=== PATIENT | male | born 1945 | race Caucasian/White ===

== ENCOUNTER 2019-12-20 09:19 | Outpatient (CLI) | payer MEDICARE, SELFPAY | END 2019-12-20 09:20 | disposition home or self-care (01) | LOC: RADWPI 12-21 08:09 | PROVIDERS: PCP Family Medicine; Referring Provider Family Medicine; Visit Provider Specialist | DX: R20.0 Anesthesia of skin; G56.13 Other lesions of median nerve, bilateral upper limbs; G56.22 Lesion of ulnar nerve, left upper limb; G56.00 Carpal tunnel syndrome, unspecified upper limb; Z86.73 Personal history of transient ischemic attack (TIA), and cerebral infarction without residual deficits; R93.5 Abnormal findings on diagnostic imaging of other abdominal regions, including retroperitoneum | CPT/HCPCS: 95910; 99204 ==

== ENCOUNTER → 2019-12-28 09:20 | Outpatient (BNVA) | payer MEDICARE, SELFPAY | PROVIDERS: PCP Family Medicine; Visit Provider Otolaryngology | DX: R13.10 Dysphagia, unspecified (principal); J34.2 Deviated nasal septum; G45.9 Transient cerebral ischemic attack, unspecified | CPT/HCPCS: 99204; 99214 ==

== ENCOUNTER 2019-12-28 11:09 | Outpatient (CLI) | payer MEDICARE, SELFPAY ==
--- NOTE | 2019-12-28 11:19 | MR_ITS ---
WS: [id number] MRI BRAIN WITHOUT CONTRAST HISTORY: TIA COMPARISON: CT head 10/11/2019 TECHNIQUE: Diffusion imaging, multiplanar T1, T2 and FLAIR imaging obtained. No evidence for acute infarct or hemorrhage. Suazo-white matter differentiation is normal. Mild bilateral cerebral atrophy is symmetric with mild small vessel ischemic changes in the periventr icular white matter. There is additional chronic ischemic disease in the krystle. There are several smal l perivascular spaces in the RIGHT krystle. No midline shift or mass effect. Ventricles and extra-axial spaces are normal. No inferior displacement of cerebellar tonsils. The sella turcica and pituitary gland are unremarkabl e. Degenerative disc disease at C3-4 with small osteophytes encroaching upon the ventral cervical cord. Dural venous sinuses and [place] demonstrate no abnormality on this unenhanced studies. Paranasal sinuses: Very mild mucoperiosteal thickening in the ethmoid and sphenoid sinuses. Mucous re tention cyst in the floor the RIGHT maxillary sinus. Mastoid air cells: Normal. Calvarium and scalp: Intact. There is a small cyst in the inferior lobe of the LEFT parotid gland. Th ere may be due to lobulated cyst or lymph node seen best on the coronal T2 sequences. Each measuring about 6 mm. MR/MR head wo con* [id number] IMPRESSION: 1. No evidence for an acute infarct. 2. Mild chronic microvascular ischemic disease. 3. Mild cerebral atrophy.
--- NOTE | 2019-12-28 11:20 | MR_ITS ---
WS: [id number] MRA ANGIOGRAPHY [place] OF [place] HISTORY: TIA COMPARISON: None available. TECHNIQUE: 3-D MR angiography is performed of the [place]. All images are reviewed including source images. Some very small caliber but patent distal RIGHT vertebral artery. Dominant LEFT vertebral artery. Bas ilar artery is normal caliber. Very mild narrowing of the supraclinoid portion of the LEFT ICA but no stenosis or occlusion. There i s mild atherosclerosis of the M1 segments bilaterally. Absent or hypoplastic LEFT A1 segment. No aneu rysms. Bilateral posterior communicating arteries are small caliber. LEFT is very hypoplastic. MR/MR angio head wo con [id number] IMPRESSION: 1. Absent or hypoplastic LEFT A1 segment. 2. Mild atherosclerosis supraclinoid internal carotid arteries and bilateral M 1 segments. No occlusions. 3. No aneurysm. 4. Dominant LEFT vertebral artery.
== END 2019-12-28 11:10 | disposition home or self-care (01) ==
PROVIDERS: PCP Family Medicine; Visit Provider Specialist
DX: I65.23 Occlusion and stenosis of bilateral carotid arteries (principal); G31.9 Degenerative disease of nervous system, unspecified; I67.82 Cerebral ischemia
CPT/HCPCS: 70544; 70551

== ENCOUNTER 2020-01-07 10:01 | Outpatient (CLI) | payer MEDICARE, SELFPAY ==
--- NOTE | 2020-01-07 10:10 | FL_ITS ---
WS: [id number] MODIFIED BARIUM SWALLOW TECHNIQUE: Modified barium swallow with speech therapy using multiple consistencies. FLUOROSCOPY TIME: 2.2 minutes. CLINICAL INFORMATION: Other dysphagia COMPARISON: None. FINDINGS: Multiple consistencies utilized. No difficulties with the barium tablet. Normal oropharyngeal phase. Tiny amount of penetration with trace aspiration with thin liquid at the end of the examination when taken in combination with the jason cracker. Remainder of the consistencies demonstrate no evidence of aspiration penetration. Some early spillage with pooling in the vallecula. FL/FL barium swallow modifd [id number] IMPRESSION: 1. Early spillage with pooling the vallecula. 2. Normal oropharyngeal phase. 3. Tiny amount of penetration and aspiration with thin liquids at the end of t he examination. Otherwise no evidence of aspiration penetration. 4. No difficulties with barium tablet.
== END 2020-01-07 10:02 | disposition home or self-care (01) ==
LOC: RAD 10:05
PROVIDERS: Family Provider Family Medicine; PCP Family Medicine; Visit Provider Otolaryngology
DX: R13.10 Dysphagia, unspecified (principal)
CPT/HCPCS: 74230; 92611

== ENCOUNTER → 2020-01-18 11:07 | Outpatient (BNVA) | payer MEDICARE, SELFPAY | PROVIDERS: Family Provider Family Medicine; PCP Family Medicine; Visit Provider Otolaryngology | DX: R13.10 Dysphagia, unspecified (principal); G45.9 Transient cerebral ischemic attack, unspecified; J34.2 Deviated nasal septum | CPT/HCPCS: 99213 ==

== ENCOUNTER 2020-02-23 05:53 | Day surgery (SDC) | payer MEDICARE, SELFPAY ==
[2020-02-22 10:28] VITALS: BMI 25.6
[2020-02-23] VITALS (7 sets, daily range): BP systolic 92–175; BP diastolic 60–93; PULSE 56–80; RESP 16–20; TEMP 36.1–37.1; O2SAT 93–97
--- NOTE | 2020-02-23 06:14 | ECG_ITS ---
Measurements Intervals [place] Rate: 51 P: 53 VT: 173 QRS: -12 QRSD: 89 T: 14 QT: 419 QTc: 387 SINUS BRADYCARDIA Compared to ECG 10/11/2019 04:22:06 Sinus rhythm no longer present Ventricular premature complex(es) no longer present T-wave abnormality no longer present Electronically Signed On 02-23-2020 19:45:09 CDT by Philly Gomes M.D. [id number]
[2020-02-23] MEDS: sodium chloride 0.9% 1,000 ML 30 ML IV (06:30)
--- NOTE | 2020-02-23 06:38 | P.ANESASSM_ITS ---
Pre-Anesthetic Assessment Pre-Anesthetic Assessment: Height/Weight: Height 1.92 m Weight 94.347 kg Temp Pulse Resp BP Pulse Ox 98.8 F 56 L 18 175/93 95 02/23/20 06:16 02/23/20 06:16 02/23/20 06:16 02/23/20 06:16 02/23/20 06:16 Preop Diagnosis: Right carpal tunnel syndrome, cubital tunnel syndrome Proposed Procedure: Operation Date: 02/23/20 07:05 Proposed Procedures p Carpal Tunnel Release [id number] G56.01 G56.21(Right) - Fabrice Simons MD s Ulna Nerve Decompression(Right) - Fabrice Simons MD Familial anesthetic complications: None Was Beta Melecio taken within 24 hours: N/A Last intake: Intake Last Liquid Date 02/22/20 Last Liquid Time 23:40 Last Solid Date 02/22/20 Last Solid Time 19:00 Social: Social History: No alcohol and No tobacco Exam: Pre-Anes Outpt Exam: alert, oriented x 3, clear to auscultation bilaterally and regular rate & rhythm Additional Exam Findings (including area of procedure): bradycardia Airway: Cervical ROM: WNL MP: 4 Additional comments: missing Pulmonary: Pulmonary: Sleep apnea (CPAP) CV/HEM: CV/HEM: Afib and HTN Comments: ? hx of atrial fibrillation - quit eliquis last month : : None reported Hepatic: Hepatic: None reported GI: GI: None reported Metabolic: Metabolic: None reported Musc/skel: Musc/skel: None reported Neuropsych: Neuropsych: CVA (L weakness, back to normal now ( september)) Anesthetic Plan: ASA status: 2 Anesthesia: General Risk of > 500 ml blood loss (7ml/kg in children): No Meds/Allergies Current Medications: Current Medications Generic Name Dose Route Start Last Admin Trade Name Freq PRN Reason Stop Dose Admin Sodium Chloride 1,000 mls @ 30 ml s/hr 02/23/20 06:00 02/23/20 06:30 Sodium Chloride 0.9% IV 02/24/20 05:59 30 mls/hr .Q24H JO-ANN Administration PFSH Anesthesia PFSH: Social History Smoking and tobacco status: former smoker Quit status (tobacco): has quit using tobacco Year quit tobacco: 1994 Alcohol intake: current Alcohol intake frequency: 0-2 Drinks per Day Alcohol type: beer History of recent travel: Yes (10/30/2019) Details: cruise to [place] Data Anesthesia Cardiac Studies: No Data to Display
--- NOTE | 2020-02-23 07:15 | W.PM.OPSFHP ---
Same Day Surgery H&P Indication for Procedure/HPI DATE OF PROCEDURE: February 23, 2020 CHIEF COMPLAINT/INDICATIONFOR SURGICAL PROCEDURE: Numbness pain right arm PREOP DIAGNOSIS: Right carpal tunnel syndrome, cubital tunnel syndrome PLANNED PROCEDRUE: Operation Date: 02/23/20 07:05 Proposed Procedures p Carpal Tunnel Release [id number] G56.01 G56.21(Right) - Fabrice Simons MD s Ulna Nerve Decompression(Right) - Fabrice Simons MD 75-year-old male with a chronic numbness and pain right arm. EMG nerve conduction study showed right carpal tunnel syndrome and right ulnar nerve compression at elbow Medications/Allergies* Home Medications Medication Instructions Recorded Confirmed Type atorvastatin 10 mg tablet 10 mg PO DAILY 12/20/19 02/23/20 History citalopram 10 mg tablet 10 mg PO DAILY 12/20/19 02/23/20 History lisinopril 10 1 tab PO DAILY 12/20/19 02/23/20 History mg-hydrochlorothiazide 12.5 mg tablet aspirin 81 mg PO DAILY 02/22/20 02/22/20 History Allergies/Adverse Reactions Allergy/AdvReac Type Severity Reaction Status Date / Time No Known Allergies Allergy Verified 01/14/20 09:35 Current Medications: Generic Name Dose Route Start Last Admin Trade Name Freq PRN Reason Stop Dose Admin Sodium Chloride 1,000 mls @ 30 mls/hr 02/23/20 06:00 02/23/20 06:30 Sodium Chloride 0.9% IV 02/24/20 05:59 30 mls/hr .Q24H JO-ANN Administration Pertinent History/Comorbid Conditions* Medical History (Updated 01/04/20 @ 10:24 by Fabrice Simons MD) Deviated septum Dysphagia Family History (Updated 12/20/19 @ 10:11 by Jackie Corrales LPN) Diabetes Hypertension Stroke Denies family history of CAD (coronary artery disease) Cancer Social History Smoking and tobacco status: former smoker Quit status (tobacco): has quit using tobacco Year quit tobacco: 1994 Alcohol intake: current Alcohol intake frequency: 0-2 Drinks per Day Alcohol type: beer History of recent travel: Yes (10/30/2019) Details: cruise to [place] Pertinent Exam Findings alert, oriented x 3, clear to auscultation bilaterally and regular rate & rhythm Full range of motion right elbow. 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
--- NOTE | 2020-02-23 09:02 | P.OP_ITS ---
Operative Report Date of procedure: February 23, 2020 Pre-op Diagnosis: Right carpal tunnel syndrome, cubital tunnel syndrome Post-op diagnosis: same Post-op Findings: Same Procedure Done: Right carpal tunnel release, right ulnar nerve decompression Pathology: none sent Surgeon: Fabrice Simons Anesthesia: General Estimated blood loss (mL): 25 Tourniquet time (min): 17 Complications: None Findings: There was dense scaring behind the medial epicondyle. No masses or space-occupying lesions were seen in the cubital tunnel or carpal tunnel Condition: stable Disposition: PACU Procedure: The patient was taken to the operating room and given a general anesthesia. A tourniquet was inflated to 225 mmHg. A timeout was performed. A 5 cm long incision was made behind the medial epicondyle. Dissection was accomplished bluntly under loupe magnification identifying the ulnar nerve prox imally. Utilizing a hemostat the fascia over the nerve was elevated and incised proximally. Dissection was then carried distally behind the medial epicondyle and into the flexor carpi ulnaris musculature. Dissection was stopped with the first muscular branches identified. Elbow was brought through range of motion with the nerve seen to stay reduced behind the medial epicondyle. No formal transpoition was thought to be warranted. A 3 cm long incision was made in line with the fourth ray from the distal edge of the carpal tunnel extending proximally. The subcutaneous fat and palmar fascia was divided with a scalpel blade. Under loupe magnification the ulnar neurovascular bundle was identified distally. A hemostat could be passed under the transverse carpal ligament allowing the distal 25% to be divided. A slotted guide was then passed beneath the transverse carpal ligament and the middle 50% divided. Blunt scissors were then passed over the guide freeing the proximal ligament. The tourniquet was deflated. Wounds were irrigated with saline. Initial attention was paid to the medial elbow wound. Wound edges were infiltrated with 10 cc of a half percent Marcaine solution Deep tissues were closed with 2-0 Vicryl. Subcutaneous is closed with 3-0 Vicryl. The skin was closed with a running 3-0 Prolene. Steri-Strips were applied. Xeroform gauze, 4 x 4's, compressive labral, and Angelito wrap, and a sling were applied. The patient was taken recovery room in stable condition. Next attention was paid to the carpal tunnel incision hemostasis provided with electrocautery. Wound edges were infiltrated with 10 cc of a half percent Marcaine solution. Skin edges were reapproximated with 3-0 Prolene. Sterile dressings were applied. The patient was taken to the recovery room in stable condition
== END 2020-02-23 09:35 | disposition home or self-care (01) ==
PROVIDERS: Family Provider Family Medicine; PCP Family Medicine; Visit Provider Orthopaedic Surgery
PROC: (CPT 64721; principal; 2020-02-23 07:00)
PROC: (CPT 64718; 2020-02-23 07:00)
DX: G56.01 Carpal tunnel syndrome, right upper limb (principal); G56.21 Lesion of ulnar nerve, right upper limb; Z79.82 Long term (current) use of aspirin; Z82.49 Family history of ischemic heart disease and other diseases of the circulatory system; Z83.3 Family history of diabetes mellitus; Z87.891 Personal history of nicotine dependence; G47.30 Sleep apnea, unspecified; I48.91 Unspecified atrial fibrillation; I10 Essential (primary) hypertension; I69.854 Hemiplegia and hemiparesis following other cerebrovascular disease affecting left non-dominant side
CPT/HCPCS: 64718; 64721; 12345; 93005; J0690; J2001; J2370; J2704; J3010; J3490; J7030

== ENCOUNTER → 2020-03-21 10:38 | Outpatient (BNVA) | payer MEDICARE, SELFPAY | PROVIDERS: Family Provider Family Medicine; PCP Family Medicine; Visit Provider Specialist | DX: I99.8 Other disorder of circulatory system (principal); R26.9 Unspecified abnormalities of gait and mobility; Z87.891 Personal history of nicotine dependence; Z86.73 Personal history of transient ischemic attack (TIA), and cerebral infarction without residual deficits | CPT/HCPCS: 99214 ==

== ENCOUNTER 2020-08-29 15:26 | Outpatient (CLI) | payer MEDICARE, SELFPAY ==
--- NOTE | 2020-08-29 15:44 | MR_ITS ---
WS: [id number] MRI LEFT KNEE NONCONTRAST TECHNIQUE: Axial PD, coronal PD fat sat, coronal PD, sagittal PD, and sagittal PD fat-sat images obta ined. CLINICAL INFORMATION: LEFT KNEE PAIN COMPARISON: None. FINDINGS: Moderate suprapatellar effusion. Mild diffuse subcutaneous edema about the left knee. Hypertrophic pa tella. Distal quadriceps and patella tendons appear intact. Advanced joint space narrowing involving the medial and lateral joint compartment with subchondral edema involving the medial femoral condyle and medial tibial plateau. ACL and PCL are intact. Extensive complex tear involving the posterior horn medial meniscus extending to the meniscal root wi th T2 hyperintensity. Some this may be postoperative from prior meniscectomy. Intrasubstance signal a bnormality involving the posterior horn medial meniscus. Lateral meniscus is better preserved. No acu te appearing lateral meniscal tear. Medial and lateral collateral ligaments appear intact. Hypertrophic patella with advanced chondromala ralph. No subchondral edema. Medial and lateral patellar intact. Soft tissue edema within the popliteal fossa. IMPRESSION: 1. Anterior and posterior cruciate ligaments are intact. 2. Extensive complex tear involving the posterior horn medial meniscus extending to the meniscal woody t with T2 hyperintensity. 3. Chronic appearing medial compartment joint space narrowing with subchondral edema involving the t ibial plateau and femoral condyle. 4. Moderate suprapatellar effusion with diffuse subcutaneous edema about the left knee likely inflam matory. 5. Advanced chondromalacia patella. No subchondral edema. 6. Advanced joint space narrowing involving the medial and lateral joint compartments with chondroma lacia.
== END 2020-08-29 15:27 | disposition home or self-care (01) ==
PROVIDERS: PCP Family Medicine; Visit Provider Family Medicine
DX: S83.242A Other tear of medial meniscus, current injury, left knee, initial encounter (principal); R60.0 Localized edema; M22.42 Chondromalacia patellae, left knee; X58.XXXA Exposure to other specified factors, initial encounter
CPT/HCPCS: 73721

== ENCOUNTER 2020-09-19 12:12 | Outpatient (CLI) | payer MEDICARE, SELFPAY ==
[2020-09-19 12:48] LABS: Basophils # 0.1 10^3/uL (0.0-0.1); Basophils % 0.8 %; Eosinophils # 0.1 10^3/uL (0.0-0.8); Hematocrit 43.5 % (42.0-52.0); Hemoglobin 14.6 g/dL (11.7-16.6); Lymphocytes # 1.4 10^3/uL (0.8-4.8); Lymphocytes % 23.2 %; Mean Corpuscular HGB Conc 33.6 g/dL (30.0-36.0); Mean Corpuscular Hemoglobin 30.7 pg (28.0-34.0); Mean Corpuscular Volume 91.4 fL (80-94); Monocytes # 0.8 10^3/uL (0.2-0.9); Neutrophils % 61.7 %; Nucleated Red Blood Cells % 0 %; Platelet Count 225 10^3/cmm (130-400); Red Blood Count 4.76 10^6/uL (4.1-5.3); Red Cell Distribution Width 12.6 % (12.1-15.1); White Blood Count 6.2 10^3/uL (4.0-10.0)
--- NOTE | 2020-09-19 13:23 | ECG_ITS ---
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1945 Requested By: Jayme Norman Order Number: [id number] Reading MD: DIGNA BILLY Measurements Intervals [place] Rate: 61 P: 70 MT: 163 QRS: 26 QRSD: 103 T: 78 QT: 393 QTc: 399 Interpretive Statements SINUS RHYTHM NONSPECIFIC ST & T-WAVE ABNORMALITY INTERPRETATION BASED ON A DEFAULT AGE OF 40 YEARS Compared to ECG 02/23/2020 06:21:49 T-wave abnormality now present Sinus bradycardia no longer present Electronically Signed On 09-21-2020 15:34:17 WAREHOUSE PULLER by DIGNA BILLY [id number]
[2020-09-19 13:32] LABS: Anion Gap 12.2 (5-19); Blood Urea Nitrogen 15 mg/dL (8-23); Calcium 9.2 mg/dL (8.5-10.5); Carbon Dioxide 29 mmol/L (22-29); Chloride 97 mmol/L (98-107); Glucose 221 mg/dL (65-115); Osmolality Calculated 286 mOsm/kg (285-295); Potassium 4.2 mmol/L (3.5-5.1); Sodium 134 mmol/L (136-145)
== END 2020-09-19 12:13 | disposition home or self-care (01) ==
PROVIDERS: PCP Family Medicine; Visit Provider Orthopaedic Surgery
DX: Z01.818 Encounter for other preprocedural examination (principal)
CPT/HCPCS: 36415; 80048; 85025; 93005

== ENCOUNTER → 2023-05-08 09:59 | Outpatient (BNVA) | payer MEDICARE, SELFPAY | PROVIDERS: PCP Nurse Practitioner Family; Visit Provider Nurse Practitioner Family | DX: L57.8 Other skin changes due to chronic exposure to nonionizing radiation (principal); L57.0 Actinic keratosis; L82.1 Other seborrheic keratosis; L85.3 Xerosis cutis; L81.4 Other melanin hyperpigmentation; D22.5 Melanocytic nevi of trunk; Z71.89 Other specified counseling | CPT/HCPCS: 17000; 17003; 99203 ==

== ENCOUNTER → 2023-08-12 11:09 | Outpatient (BNVA) | payer MEDICARE, SELFPAY | PROVIDERS: PCP Nurse Practitioner Family; Visit Provider Nurse Practitioner Family | DX: L57.8 Other skin changes due to chronic exposure to nonionizing radiation (principal); L57.0 Actinic keratosis; L82.1 Other seborrheic keratosis; L81.4 Other melanin hyperpigmentation | CPT/HCPCS: 17000; 99213 ==

== ENCOUNTER → 2024-12-20 10:00 | Outpatient (BNVA) | payer OTHER, SELFPAY | PROVIDERS: PCP Nurse Practitioner Family; Visit Provider Specialist | DX: M17.11 Unilateral primary osteoarthritis, right knee (principal) | CPT/HCPCS: 20610; 73560; 73565; 99204; J7326 ==

== ENCOUNTER 2025-03-08 15:13 | Emergency (ER) | payer OTHER, MEDICARE, SELFPAY ==
[2025-03-08] VITALS (9 sets, daily range): BP systolic 110–212; BP diastolic 71–100; PULSE 48–91; RESP 16–20; TEMP 36.6; O2SAT 94–98; BMI 24.2
--- NOTE | 2025-03-08 15:23 | ECG_ITS ---
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1945 Requested By: Tamica Richards Order Number: [id number] Reading MD: DIGNA BILLY Measurements Intervals [place] Rate: 55 P: 65 MD: 159 QRS: -26 QRSD: 99 T: -11 QT: 425 QTc: 408 Interpretive Statements SINUS BRADYCARDIA INCOMPLETE RIGHT BUNDLE BRANCH BLOCK [90+ ms QRS DURATION, TERMINAL R IN V1/V2, 40+ ms S IN I/aVL/V4/V5/V6] PROBABLE SEPTAL MYOCARDIAL INFARCTION , PROBABLY OLD [35 ms Q WAVE IN V1/V2] Compared to ECG 09/19/2020 13:07:57 Incomplete right bundle-branch block now present Myocardial infarct finding now present Sinus rhythm no longer present T-wave abnormality no longer present Electronically Signed On 03-10-2025 23:33:30 CDT by DIGNA BILLY [email or web address] [id number]
--- NOTE | 2025-03-08 16:19 | ECG_ITS ---
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1945 Requested By: Bertrand Aguilar Order Number: [id number] Reading MD: DIGNA BILLY Measurements Intervals [place] Rate: 55 P: 65 [place]: 159 QRS: -26 QRSD: 99 T: -11 QT: 425 QTc: 408 Interpretive Statements SINUS BRADYCARDIA INCOMPLETE RIGHT BUNDLE BRANCH BLOCK [90+ ms QRS DURATION, TERMINAL R IN V1/V2, 40+ ms S IN I/aVL/V4/V5/V6] PROBABLE SEPTAL MYOCARDIAL INFARCTION , PROBABLY OLD [35 ms Q WAVE IN V1/V2] Compared to ECG 09/19/2020 13:07:57 Incomplete right bundle-branch block now present Myocardial infarct finding now present Sinus rhythm no longer present T-wave abnormality no longer present Electronically Signed On 03-10-2025 23:33:42 CDT by DIGNA BILLY [id number]
--- NOTE | 2025-03-08 16:25 | ED_ITS ---
Documented by User: Bertrand Ornelas DO 03/08/25 16:51 HPI - Arrhythmia/Palpitations 2 General: Chief Complaint: Arrhythmia/Palpitations Stated Complaint: heart rate is up and down Time Seen by Provider: 03/08/25 16:17 History of Present Illness: 80-year-old male presents emergency room complaining of feeling lightheaded and dizzy when he stands up. He was at a local pharmacy in [place] and tested his blood pressure read 77 systolic presented to the emergency room he has had this in the past before. He feels fuzzy when he first stands up and feels like he is going to pass out often. He is on tamsulosin and escitalopram no other blood pressure medications he is bradycardic on arrival but relates that he is chronically at that same rate. He is not had any chest pain or shortness of breath. Related Data Home Medications ?Medication ?Instructions ?Recorded ?Confirmed atorvastatin 10 mg tablet 10 mg PO DAILY 03/08/2502/24 escitalopram oxalate 20 mg tablet 20 mg PO DAILY 03/0803/08/25 tamsulosin 0.4 mg capsule 0.4 mg PO DAILY 03/08/25 Allergies Allergy/AdvReac Type Severity Reaction Status Date / Time No Known Allergies Allergy Verified 12/20/24 10:19 Review of Systems 2 Const: Denies: fever(s) or chills Card: Denies: chest pain Resp: Denies: dyspnea GI: Denies: abdominal pain : Denies: dysuria, urinary frequency or urinary urgency Musc: Denies: neck pain or back pain Skin/Breast: Denies: rash PFSH ED 2 PFSH: Medical History (Updated 03/08/25 @ 20:06 by Chet Corado MD) Deviated septum Dysphagia Family History Other Diabetes Hypertension Stroke Denies family history of CAD (coronary artery disease) Cancer Social History Smoking and tobacco/nicotine status: never used tobacco/nicotine Quit status (tobacco/nicotine): has quit using Year quit tobacco: 1994 Alcohol intake: current Alcohol intake frequency: 0-2 Drinks per Day Alcohol type: beer Substance/Drug Use: never Physical Exam 2 Const: GENERAL APPEARANCE: cooperative ORIENTATION/CONSCIOUSNESS: Yes awake, Yes oriented to person, Yes oriented to place and Yes oriented to time HENMT: COMMON NORMALS: normocephalic, atraumatic and hearing grossly normal bilaterally HEAD & SCALP: normocephalic and atraumatic Resp: COMMON NORMALS: normal respiratory effort, No retractions, No use of accessory muscles and clear to auscultation bilaterally AUSCULTATION: clear to auscultation bilaterally Cardio: COMMON NORMALS: regular rate, regular rhythm and No murmurs present (Cardio) RATE: regular rate RHYTHM: regular rhythm GI: COMMON NORMALS: Soft to palpation and No hepatosplenomegaly present A USCULTATION: Yes normoactive bowel sounds PALPATION: Yes Soft to palpation, No Tenderness to palpation present (GI), No Guarding due to palpation present (GI) and Yes No hepatosplenomegaly present Extremity: COMMON NORMALS: normal to inspection, capillary refill normal, no clubbing, cyanosis or edema, no calf tenderness and no pedal edema Neuro: SENSORIUM/ORIENTATION: Yes oriented to person, Yes oriented to place and Yes oriented to time Skin: COMMON NORMALS: no rashes or lesions noted GENERAL SKIN EXAM: no rashes or lesions noted Course 2 Vital Signs: Vital signs: Vital Signs Temperature 97.8 F 03/08/25 15:16 Pulse Rate 52 L 03/08/25 20:34 Respiratory Rate 20 H 03/08/25 19:45 Blood Pressure 172/90 03/08/25 20:34 Pulse Oximetry 96 03/08/25 20:34 Oxygen Delivery Me thod Ambu-Bag 03/08/25 19:45 MDM - Arrhythmia/Palpitations Lab Data 03/08/25 16:29 03/08/25 16:29 Radiology Impressions Chest X-Ray 03/08/25 17:11 IMPRESSION: No acute findings. Laboratory Results WBC 7.01 10^3/uL (3.29-11.43) 03/08/25 16:29 RBC 5.10 10^6/uL (3.85-5.65) 03/08/25 16:29 Hgb 15.20 g/dL (11.27-16.99) 03/08/25 16:29 Hct 46.4 % (37-53) 03/08/25 16:29 MCV 91.0 fl (82-101) 03/08/25 16: MCH 29.8 pg (27-33) 03/08/25 16: MCHC 32.8 g/dL (30-55) 03/08/25 16: RDW 12.7 % (12.1-15.1) 03/08/25 16: Plt Count 163 10^3/cmm (157-399) 03/08/25 16: MPV 10.5 fL (7.4-10.4) H 03/08/25 16: Neut % (Auto) 55.5 % 03/08/25 16: Lymph % (Auto) 30.1 % 03/08/25 16: Archer % (Auto) 12.1 % 03/08/25 16: Eos % (Auto) 1.6 % 03/08/25 16: Baso % (Auto) 0.6 % 03/08/25 16: Neut # (Auto) 3.89 10^3/uL (1.8-7.7) 03/08/25 16: Lymph # (Auto) 2.1 10^3/uL (0.8-4.8) 03/08/25 16: Archer # (Auto) 0.9 10^3/uL (0.2-0.9) 03/08/25 16: Eos # (Auto) 0.1 10^3/uL (0.0-0.8) 03/08/25 16: Baso # (Auto) 0.0 10^3/uL (0.0-0.1) 03/08/25: Nucleated RBC % (auto) 0 % 03/08/25 16: Nucleated RBCs # 0.0 /100WBC 03/08/25 16: Sodium 137 mmol/L (136-145) 03/08/25 16: Potassium 4.2 mmol/L (3.5-5.1) 03/08/25 16: Chloride 100 mmol/L (98-107) 03/08/25 16: Carbon Dioxide 24 mmol/L (22-29) 03/08/25 16: Anion Gap 17.2 (5-19) 03/08/25 16: BUN 21 mg/dL (8-23) 03/08/25 16: Creatinine 1.3 mg/dL (0.7-1.2) H 03/08/25 16:29 GFR Calculation Not Reportable 03/08/25 16: Glucose 121 mg/dL (65-115) H 03/08/25 16:29 Calculated Osmolality 288 mOsm/kg (285-295) 03/08/25 16: Calcium 8.8 mg/dL (8.5-10.5) 03/08/25 16: Total Bilirubin 0.4 mg/dL (0.15-1.2) 03/08/25 16: AST 23 U/L (0-40) 03/08/25 16: ALT 19 U/L (0-41) 03/08/25 16: Alkaline Phosphatase 96 U/L (40-130) 03/08/25 16:29 Troponin T Baseline 16 ng/L (0-15) H 03/08/25 16: Troponin T 120 Minute 16.11 ng/L (0-15) H 03/08/25 18:18 Delta Troponin T 0.11 ABS# (0-10) 03/08/25 18:18 Total Protein 6.5 g/dL (6.6-8.7) L 03/08/25 16: Albumin 4.1 g/dL (3.5-5.2) 03/08/25 16: Globulin 2.4 g/dL (1.3-4.6) 03/08/25 16:29 Urine Color Yellow (Yellow) 03/08/25 18:10 Urine Appearance Clear (CLEAR) 03/08/25 18:10 Urine pH 5.5 (5-7) 03/08/25 18:10 Ur Specific [place] 1.015 (1.005-1.030) 03/08/25 18:10 Urine Protein Negative (Negative) 03/08/25 18:10 Urine Glucose (UA) 3+ (Normal) H 03/08/25 18:10 Urine Ketones Negative (Negative) 03/08/25 18:10 Urine Blood Negative (Negative) 03/08/25 18:10 Urine Nitrate Negative (Negative) 03/08/25 18:10 Urine Bilirubin Negative (Negative) 03/08/25 18:10 Urine Urobilinogen 1.0 mg/dL (Negative) 03/08/25 18:10 Ur Leukocyte Esterase Negative (Negative) 03/08/25 18:10 Urine RBC 0-2 /hpf (0-2) 03/08/25 18:10 Urine WBC 0-5 /hpf (0-5) 03/08/25 18:10 Ur Squamous Epith Cells 0-5 /hpf (0-5) 03/08/25 18:10 Amorphous Sediment Not Reportable 03/08/25 18:10 Urine Bacteria None seen /hpf (NONE) 03/08/25 18:10 Hyaline Casts 0-4 /lpf H 03/08/25 18:10 Discharge Plan Discharge Patient Disposition: Home Clinical Impression: Orthostasis, Labile blood pressure Condition: Stable Prescriptions: No Action atorvastatin 10 mg tablet 10 mg PO DAILY tamsulosin 0.4 mg capsule 0.4 mg PO DAILY escitalopram oxalate 20 mg tablet 20 mg PO DAILY Discharge Orders: Discharge ED (Routine); Ordered 03/08/25 Ordered By: Chet Corado Referrals: Jordon Rodriges M.D [Physician, Cardiology] Referral Note: no BP meds, labile BP, bradycardic, orthostatic, may need pacemaker Sagrario Burgess APRN [Primary Care Provider] Discharge Diet: Usual diet Discharge Activity: Increase activity as tolerated Patient Instructions: Near Syncope (ED) Print Language: Nepali Coding Level of Care Code ED Lead Case Manager for Chg Fwd Documented by User: Chet Corado MD 03/09/25 05:41 HPI - Arrhythmia/Palpitations 2 General: Chief Complaint: Arrhythmia/Palpitations Stated Complaint: heart rate is up and down Time Seen by Provider: 03/08/25 16:17 Related Data Home Medications ?Medication ?Instructions ?Recorded ?Confirmed atorvastatin 10 mg tablet 10 mg PO DAILY 03/08/2502/24 escitalopram oxalate 20 mg tablet 20 mg PO DAILY 03/0803/08/25 tamsulosin 0.4 mg capsule 0.4 mg PO DAILY 03/08/25 Allergies Allergy/AdvReac Type Severity Reaction Status Date / Time No Known Allergies Allergy Verified 12/20/24 10:19 [facility] ED 2 PFS: Medical History (Updated 03/08/25 @ 20:06 by Chet Corado MD) Deviated septum Dysphagia Family History Other Diabetes Hypertension Stroke Denies family history of CAD (coronary artery disease) Cancer Social History Smoking and tobacco/nicotine status: never used tobacco/nicotine Quit status (tobacco/nicotine): has quit using Year quit tobacco: 1994 Alcohol intake: current Alcohol intake frequency: 0-2 Drinks per Day Alcohol type: beer Substance/Drug Use: never Course 2 Vital Signs: Vital signs: Vital Signs Temperature 97.8 F 03/08/25 15:16 Pulse Rate 52 L 03/08/25 20:34 Respiratory Rate 20 H 03/08/25 19:45 Blood Pressure 172/90 03/08/25 20:34 Pulse Oximetry 96 03/08/25 20:34 Oxygen Delivery Me thod Ambu-Bag 03/08/25 19:45 MDM - Arrhythmia/Palpitations Medical Decision Making Mak @ 2008 - Patient signed out to me by previous emergency physician pending labs, EKG, chest x-ray. All appear to be stable. He is mildly bradycardic with heart rate of 52 at time of my exam. My best understanding is that he had a blood pressure reading of 77 systolic at [facility] prompting him to visit the emergency department. He does not take blood pressure medication. He states that he has felt lightheaded when he stands up for the last few years and fallen several times as a result. EKG, chest x-ray, labs do not show evidence of acute process requiring hospitalization. After receiving IV fluids he is now able to stand up without feeling lightheaded. We discussed that with his bradycardia he may benefit from pacemaker placement. He does not wish to pursue this directly today but will follow-up with cardiology. He also knows that should his symptoms get worse or if he has lightheadedness at rest he should return immediately to the emergency department to consider more urgent intervention. At time of discharge, blood pressure is significantly higher but I do not feel it real to intervene as I do not have multiple data points to 0.2 pattern of hypertension and I feel that the risk of ensuing worsening hypotension would pose him a much more significant threat given his frequent orthostasis. He shows good understanding and agrees to the plan. Lab Data 03/08/25 16:29 03/08/25 16: Radiology Impressions Chest X-Ray 03/08/25 17:11 IMPRESSION: No acute findings. Laboratory Results WBC 7.01 10^3/uL (3.29-11.43) 03/08/25 16: RBC 5.10 10^6/uL (3.85-5.65) 03/08/25 16: Hgb 15.20 g/dL (11.27-16.99) 03/08/25 16: Hct 46.4 % (37-53) 03/08/25 16: MCV 91.0 fl (82-101) 03/08/25 16: MCH 29.8 pg (27-33) 03/08/25 16: MCHC 32.8 g/dL (30-55) 03/08/25 16: RDW 12.7 % (12.1-15.1) 03/08/25 16: Plt Count 163 10^3/cmm (157-399) 03/08/25 16: MPV 10.5 fL (7.4-10.4) H 03/08/25 16: Neut % (Auto) 55.5 % 03/08/25 16: Lymph % (Auto) 30.1 % 03/08/25 16: Archer % (Auto) 12.1 % 03/08/25 16: Eos % (Auto) 1.6 % 03/08/25 16: Baso % (Auto) 0.6 % 03/08/25 16: Neut # (Auto) 3.89 10^3/uL (1.8-7.7) 03/08/25 16: Lymph # (Auto) 2.1 10^3/uL (0.8-4.8) 03/08/25 16: Archer # (Auto) 0.9 10^3/uL (0.2-0.9) 03/08/25 16: Eos # (Auto) 0.1 10^3/uL (0.0-0.8) 03/08/25 16: Baso # (Auto) 0.0 10^3/uL (0.0-0.1) 03/08/25 16: Nucleated RBC % (auto) 0 % 03/08/25 16: Nucleated RBCs # 0.0 /100WBC 03/08/25 16: Sodium 137 mmol/L (136-145) 03/08/25 16: Potassium 4.2 mmol/L (3.5-5.1) 03/08/25 16: Chloride 100 mmol/L (98-107) 03/08/25 16: Carbon Dioxide 24 mmol/L (22-29) 03/08/25 16: Anion Gap 17.2 (5-19) 03/08/25 16: BUN 21 mg/dL (8-23) 03/08/25 16: Creatinine 1.3 mg/dL (0.7-1.2) H 03/08/25 16: GFR Calculation Not Reportable 03/08/25 16: Glucose 121 mg/dL (65-115) H 03/08/25 16:29 Calculated Osmolality 288 mOsm/kg (285-295) 03/08/25 16: Calcium 8.8 mg/dL (8.5-10.5) 03/08/25 16: Total Bilirubin 0.4 mg/dL (0.15-1.2) 03/08/25 16: AST 23 U/L (0-40) 03/08/25 16: ALT 19 U/L (0-41) 03/08/25 16:29 Alkaline Phosphatase 96 U/L (40-130) 03/08/25 16:29 Troponin T Baseline 16 ng/L (0-15) H 03/08/25 16: Troponin T 120 Minute 16.11 ng/L (0-15) H 03/08/25 18:18 Delta Troponin T 0.11 ABS# (0-10) 03/08/25 18:18 Total Protein 6.5 g/dL (6.6-8.7) L 03/08/25 16:29 Albumin 4.1 g/dL (3.5-5.2) 03/08/25 16:29 Globulin 2.4 g/dL (1.3-4.6) 03/08/25 16:29 Urine Color Yellow (Yellow) 03/08/25 18:10 Urine Appearance Clear (CLEAR) 03/08/25 18:10 Urine pH 5.5 (5-7) 03/08/25 18:10 Ur Specific [place] 1.015 (1.005-1.030) 03/08/25 18:10 Urine Protein Negative (Negative) 03/08/25 18:10 Urine Glucose (UA) 3+ (Normal) H 03/08/25 18:10 Urine Ketones Negative (Negative) 03/08/25 18:10 Urine Blood Negative (Negative) 03/08/25 18:10 Urine Nitrate Negative (Negative) 03/08/25 18:10 Urine Bilirubin Negative (Negative) 03/08/25 18:10 Urine Urobilinogen 1.0 mg/dL (Negative) 03/08/25 18:10 Ur Leukocyte Esterase Negative (Negative) 03/08/25 18:10 Urine RBC 0-2 /hpf (0-2) 03/08/25 18:10 Urine WBC 0-5 /hpf (0-5) 03/08/25 18:10 Ur Squamous Epith Cells 0-5 /hpf (0-5) 03/08/25 18:10 Amorphous Sediment Not Reportable 03/08/25 18:10 Urine Bacteria None seen /hpf (NONE) 03/08/25 18:10 Hyaline Casts 0-4 /lpf H 03/08/25 18:10 All radiology interpretation(s) finalized by discharge Discharge Plan Discharge Patient Disposition: Home Clinical Impression: Orthostasis, Labile blood pressure Condition: Stable Prescriptions: No Action atorvastatin 10 mg tablet 10 mg PO DAILY tamsulosin 0.4 mg capsule 0.4 mg PO DAILY escitalopram oxalate 20 mg tablet 20 mg PO DAILY Discharge Orders: Discharge ED (Routine); Ordered 03/08/25 Ordered By: Chet Corado Referrals: Jordon Rodriges M.D [Physician, Cardiology] Referral Note: no BP meds, labile BP, bradycardic, orthostatic, may need pacemaker Sagrario Burgess APRN [Primary Care Provider] Discharge Diet: Usual diet Discharge Activity: Increase activity as tolerated Patient Instructions: Near Syncope (ED) Print Language: Nepali Coding Level of Care Code ED Lead Case Manager for David Mccullough
[2025-03-08 16:37] LABS: Basophils % 0.6 %; Eosinophils # 0.1 10^3/uL (0.0-0.8); Eosinophils % 1.6 %; Hematocrit 46.4 % (37-53); Lymphocytes # 2.1 10^3/uL (0.8-4.8); Lymphocytes % 30.1 %; Mean Corpuscular HGB Conc 32.8 g/dL (30-55); Mean Corpuscular Hemoglobin 29.8 pg (27-33); Mean Platelet Volume 10.5 fL (7.4-10.4); Monocytes # 0.9 10^3/uL (0.2-0.9); Monocytes % 12.1 %; Neutrophils # 3.89 10^3/uL (1.8-7.7); Neutrophils % 55.5 %; Nucleated Red Blood Cells % 0 %; Platelet Count 163 10^3/cmm (157-399); Red Cell Distribution Width 12.7 % (12.1-15.1); White Blood Count 7.01 10^3/uL (3.29-11.43)
[2025-03-08 17:06] LABS: Troponin(5th) Baseline 16 ng/L (0-15)
[2025-03-08 17:08] LABS: Alanine Aminotransferase 19 U/L (0-41); Albumin Level 4.1 g/dL (3.5-5.2); Alkaline Phosphatase 96 U/L (40-130); Aspartate Amino Transferase 23 U/L (0-40); Blood Urea Nitrogen 21 mg/dL (8-23); Calcium 8.8 mg/dL (8.5-10.5); Carbon Dioxide 24 mmol/L (22-29); Chloride 100 mmol/L (98-107); Creatinine Clr Calc Pharmacy 54.1456; Globulin 2.4 g/dL (1.3-4.6); Glucose 121 mg/dL (65-115); Osmolality Calculated 288 mOsm/kg (285-295); Sodium 137 mmol/L (136-145); Total Bilirubin 0.4 mg/dL (0.15-1.2); Total Protein 6.5 g/dL (6.6-8.7)
--- NOTE | 2025-03-08 17:11 | XRR_ITS ---
PROCEDURE INFORMATION: Exam: XR Chest Exam date and time: 03/08/2025 5:12 PM Age: 80 years old Clinical indication: Shortness of breath; Additional info: Orthostasis, hypotension TECHNIQUE: Imaging protocol: Radiologic exam of the chest. Views: 1 view. COMPARISON: CR XR chest 1V [id number] 10/11/2019 2:36 AM FINDINGS: Lungs: Unremarkable. No consolidation. Pleural spaces: Unremarkable. No pleural effusion. No pneumothorax. Heart/Mediastinum: Unremarkable. No cardiomegaly. Bones/joints: Unremarkable. XR/XR chest 1V portable [id number] IMPRESSION: No acute findings.
[2025-03-08 17:21] LABS: Anion Gap 17.2 (5-19); Potassium 4.2 mmol/L (3.5-5.1)
[2025-03-08] MEDS: sodium chloride 0.9% 1,000 ML 999 ML IV (17:27)
--- NOTE | 2025-03-08 18:19 | ECG_ITS ---
[facility] Test Date: 2025-03-08 Pat Name: Lauren Kendrick Department: Room: Gender: Male Personal Health Coach: : 1945 Requested By: Bertrand Aguilar Order Number: [id number] Reading MD: DIGNA BILLY Measurements Intervals Willis Rate: 49 P: 75 CO: 169 QRS: -16 QRSD: 99 T: -7 QT: 434 QTc: 392 Interpretive Statements SINUS BRADYCARDIA INCOMPLETE RIGHT BUNDLE BRANCH BLOCK [90+ ms QRS DURATION, TERMINAL R IN V1/V2, 40+ ms S IN I/aVL/V4/V5/V6] SEPTAL MYOCARDIAL INFARCTION , PROBABLY OLD [40+ ms Q WAVE IN V1/V2] Compared to ECG 03/08/2025 15:23:07 No significant changes Electronically Signed On 03-10-2025 23:40:58 CDT by DIGNA BILLY [email or web address]
[2025-03-08 18:33] LABS: Bilirubin Urine Negative (Negative); Blood Urine Negative (Negative); Glucose Urine UA 3+ (Normal); Ketones Urine Negative (Negative); Leukocyte Esterase Urine Negative (Negative); Nitrate Urine Negative (Negative); Protein Urine Negative (Negative); Specific Gravity, Urine 1.015 (1.005-1.030); Urine Appearance Clear (CLEAR); Urine Color Yellow (Yellow); pH Urine 5.5 (5-7)
[2025-03-08 18:37] LABS: Add Urine Microscopic? YES; Bacteria Urine None Seen /hpf; Hyaline Casts Urine 0-4 /lpf; RBC Urine 0-2 /hpf (0-2); Squamous Epithelial Cell Urine 0-5 /hpf (0-5); WBC Urine 0-5 /hpf (0-5)
[2025-03-08 18:42] LABS: Add Urine Culture? No
[2025-03-08 18:47] LABS: Troponin 5 2HR 16.11 ng/L (0-15); Troponin 5 2HR Delta 0.11 ABS# (0-10)
== END 2025-03-08 20:20 | disposition home or self-care (01) ==
PROVIDERS: Emergency Provider Family Medicine; PCP Nurse Practitioner Family
DX: I95.1 Orthostatic hypotension (principal); R03.0 Elevated blood-pressure reading, without diagnosis of hypertension
CPT/HCPCS: 36415; 71045; 80053; 81001; 84484; 85025; 93005; 96360; 99285; J7030

== ENCOUNTER → 2025-03-23 09:36 | Outpatient (BNVA) | payer MEDICARE, SELFPAY | PROVIDERS: PCP Nurse Practitioner Family; Referring Provider Nurse Practitioner Family; Visit Provider Psychiatry & Neurology Neurology | DX: G31.9 Degenerative disease of nervous system, unspecified (principal); R41.3 Other amnesia; G45.9 Transient cerebral ischemic attack, unspecified; R55 Syncope and collapse; R00.1 Bradycardia, unspecified; G62.9 Polyneuropathy, unspecified | CPT/HCPCS: 36415; 82306; 82542; 82607; 82746; 83520; 83735; 83921; 86592; 86780; 99203 ==

== ENCOUNTER → 2025-03-25 09:50 | Outpatient (BNVA) | payer OTHER, SELFPAY | PROVIDERS: PCP Nurse Practitioner Family; Visit Provider Specialist | DX: M17.11 Unilateral primary osteoarthritis, right knee (principal) | CPT/HCPCS: 20610; J1100; J2795; J3301; J9999 ==

== ENCOUNTER → 2025-04-19 10:53 | Outpatient (BNVA) | payer MEDICARE, SELFPAY | PROVIDERS: PCP Nurse Practitioner Family; Referring Provider Psychiatry & Neurology Neurology; Visit Provider Specialist | DX: R00.1 Bradycardia, unspecified (principal); R56.9 Unspecified convulsions | CPT/HCPCS: 95816 ==

== ENCOUNTER 2025-04-21 11:06 | Outpatient (CLI) | payer OTHER, SELFPAY ==
--- NOTE | 2025-04-21 11:00 | MR_ITS ---
WS: [id number] MRI HEAD WITH CONTRAST TECHNIQUE: Sagittal T1, T2 axial, T2 axial FLAIR, axial susceptibility weighted imaging, axial diffusion weighted images, and coronal T2 images were obtained. Pre and post-T1 axial and post T1 coronal images. ADC and FSPGR images. 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 Moderate small vessel changes. Moderate parenchymal volume loss. Small vessel changes in the krystle. Normal vascular flow voids at the skull base. No extra-axial fluid collections. Mild mucosal thickening in the paranasal sinuses. Mild to moderate symmetric atrophy temporal lobes and hippocampal formations. No hemosiderin on the susceptibly weighted images. No abnormal gadolinium enhancement. MR/MR head wo/w con [id number] IMPRESSION: 1. No evidence of restricted diffusion to suggest acute ischemia. 2. Moderate small vessel changes with moderate parenchymal volume loss. Small vessel changes in the krystle. Mild progression of small vessel changes and atroph y since 2019. 3. No hemosiderin. 4. No abnormal gadolinium enhancement.
[2025-04-21] MEDS: gadobenate dimeglumine 20 mL vial 19 ML IV (11:51)
== END 2025-04-21 11:07 | disposition home or self-care (01) ==
PROVIDERS: PCP Nurse Practitioner Family; Visit Provider Psychiatry & Neurology Neurology
DX: G31.9 Degenerative disease of nervous system, unspecified (principal); G31.89 Other specified degenerative diseases of nervous system
CPT/HCPCS: 70553

== ENCOUNTER → 2025-04-26 14:08 | Outpatient (BNVA) | payer OTHER, SELFPAY | PROVIDERS: PCP Nurse Practitioner Family; Referring Provider Student in an Organized Health Care Education/Training Program; Visit Provider Internal Medicine | DX: R55 Syncope and collapse (principal); R00.1 Bradycardia, unspecified | CPT/HCPCS: 99204 ==

== ENCOUNTER → 2025-05-04 09:16 | Outpatient (BNVA) | payer OTHER, SELFPAY | PROVIDERS: PCP Nurse Practitioner Family; Visit Provider Psychiatry & Neurology Neurology | DX: R41.3 Other amnesia (principal); R00.1 Bradycardia, unspecified; G31.9 Degenerative disease of nervous system, unspecified; R55 Syncope and collapse | CPT/HCPCS: 36415; 80053; 84439; 84443; 84481; 99213 ==

== ENCOUNTER 2025-05-13 14:15 | Outpatient (CLI) | payer OTHER, SELFPAY ==
--- NOTE | 2025-05-13 14:30 | USCV_ITS ---
Lauren Kendrick Age: 80 Gender: M : 1945 Exam Date: 05/13/2025 14:53 Ordering Phys: Cody Basilio MD Technologist: [employer]R Exam Location: [facility] – [place] Indication: stenosis Risk Factors: Previous Vascular Surgery: Right Brachial BP: / Left Brachial BP: / Right Left Velocity (cm/s) Spectral Plaque Velocity (cm/s) Spectral Plaque Syst/Diast Broadening Syst/Diast Broadening 63.90/ 7.90 Prox CCA 94.90 / 11.50 69.90/ 13.10 Mid CCA 100.30/ 16.90 61.30/ 14.80 Distal CCA 58.10 / 9.30 50.50/ 13.60 Prox ICA 39.00 / 10.90 64.90/ 17.20 Mid ICA 46.90 / 14.40 34.90/ 14.50 Distal ICA 46.90 / 12.40 140.50 ECA 70.30 1.10 ICA/CCA 0.80 Antegrade Vertebral Antegrade 13.10/ 4.60 cm/s 29.10/ 8.50 cm/s Bi Subclavian Bi 49.60 58.90 CONCLUSIONS Right ICA stenosis <50%. Moderate atheromatous plaque right carotid bulb/ICA. Left ICA stenosis <50%. Moderate atheromatous plaque left carotid bulb/ICA. Intimal thickening in the common carotid arteries and internal carotid arteries bilaterally. Normal antegrade Doppler flow noted in the right vertebral artery. Normal antegrade Doppler flow noted in the left vertebral artery. Richard Lacey MD (Electronically Signed) Final Date: 13 May 2025 16:14 S
== END 2025-05-13 14:16 | disposition home or self-care (01) ==
LOC: RAD 14:16
PROVIDERS: PCP Nurse Practitioner Family; Visit Provider Psychiatry & Neurology Neurology
DX: G45.9 Transient cerebral ischemic attack, unspecified (principal); G31.9 Degenerative disease of nervous system, unspecified; R41.3 Other amnesia
CPT/HCPCS: 93880

== ENCOUNTER 2025-05-30 11:05 | Outpatient (CLI) | payer OTHER, SELFPAY ==
--- NOTE | 2025-05-30 11:15 | USCV_ITS ---
Lauren Kendrick Age: 80 Gender: M : 1945 Exam Date: 05/30/2025 11:18 Ordering Phys: Jordon Rodriges M.D ([email or web address]) Technologist: Exam Location: [facility] [place] Indication: cp murmur BP: 118 / 80 HR: 57 Rhythm: Sinus Technical Quality: Adequate MEASUREMENTS (Male / Female) Normal Values 2D ECHO LV Diastolic Diameter PLAX 4.7 cm 4.2 - 5.9 / 3.9 - 5.3 cm IVS Diastolic Thickness 1.3 cm 0.6 - 1.0 / 0.6 - 0.9 cm IVS Systolic Thickness 1.5 cm LVPW Diastolic Thickness 1.2 cm 0.6 - 1.0 / 0.6 - 0.9 cm LVPW Systolic Thickness 1.5 cm LVOT Diameter 2.1 cm LV Ejection Fraction 2D Teich 69.6 % LV Ejection Fraction MOD 4C 72.1 % LV Ejection Fraction MOD 2C 73.5 % LV Ejection Fraction 2C AL 73.9 % LA Diameter 4.4 cm RA Systolic Volume 4C AL 41.7 ml RA Systolic Volume 4C MOD 42.9 ml Aorta at Sinotubular Diameter 2.9 cm IVC Diameter 1.7 cm M-MODE LA Ao Ratio MM 1.2 AV Cusp Separation MM 2.5 cm DOPPLER AV Peak Velocity 125.0 cm/s LVOT Peak Velocity 76.0 cm/s AV Area Cont Eq vti 2.4 cm squared AV Area Cont Eq pk 2.0 cm squared MV Peak Velocity 90.0 cm/s MV Area PHT 3.1 cm squared Mitral E to A Ratio 1.0 TV Peak Velocity 237.5 cm/s TR Peak Velocity 244.0 cm/s TR Peak Gradient 23.8 mmHg TV Peak E Velocity 58.0 cm/s PV Peak Velocity 72.0 cm/s FINDINGS Left Ventricle Normal left ventricular size, systolic function and wall thickness, with no regional wall motion abnormalities. Left ventricular ejection fraction is estimated at 60 %. Grade II/IV diastolic dysfunction, moderately elevated filling pressures. Right Ventricle The right ventricle is normal in size and function. Right Atrium The right atrium is normal in size. Left Atrium Moderately increased left atrial size. Mitral Valve Thickened mitral valve. No mitral valve stenosis. Mild mitral valve regurgitation. Aortic Valve Thickened aortic valve. No aortic valve stenosis. Mild aortic valve regurgitation. Tricuspid Valve Structurally normal tricuspid valve without significant stenosis or regurgitation. Pulmonary artery systolic pressure is normal. Pulmonic Valve Structurally normal pulmonic valve without significant stenosis. There is no pulmonic regurgitation. Pericardium Normal pericardium without effusion. Aorta Normal ascending aorta dimension. IVC The inferior vena cava appears normal. CONCLUSIONS Normal left ventricular size, systolic function and wall thickness, with no regional wall motion abnormalities. Left ventricular ejection fraction is estimated at 60 %. Grade II/IV diastolic dysfunction, moderately elevated filling pressures. Moderately increased left atrial size. Thickened aortic valve. No aortic valve stenosis. Mild aortic valve regurgitation. Thickened mitral valve. No mitral valve stenosis. Mild mitral valve regurgitation. There is no pericardial effusion. Right atrial pressure is around 5 mm of mercury. Bill Brown MD (Electronically Signed) Final Date: 30 May 2025 13:37 S
== END 2025-05-30 11:06 | disposition home or self-care (01) ==
LOC: RAD 11:06
PROVIDERS: PCP Nurse Practitioner Family; Visit Provider Internal Medicine
DX: R07.9 Chest pain, unspecified (principal); R06.02 Shortness of breath; I50.30 Unspecified diastolic (congestive) heart failure; I34.0 Nonrheumatic mitral (valve) insufficiency; I35.1 Nonrheumatic aortic (valve) insufficiency
CPT/HCPCS: 93306

== ENCOUNTER 2025-06-02 14:24 | Outpatient (CLI) | payer OTHER, SELFPAY ==
--- NOTE | 2025-06-02 14:31 | MR_ITS ---
WS: [id number] MRI RIGHT SHOULDER NONCONTRAST TECHNIQUE: Sagittal T2, coronal T1, T2 and proton density imaging. Axial gradient PDE imaging. CLINICAL INFORMATION: FALL ONE WEEK AGO IN BATHTUB/POSITIVE ROTATOR CUFF INJURY COMPARISON: None. FINDINGS: Advanced arthritis AC joint. Downsloping acromion with marked narrowing of the subacromial space with impingement on the underlying rotator cuff. Subacromial spurring. Fluid and edema in the subacromial and subdeltoid bursa. Advanced degenerative narrowing of the glenohumeral articulation. Chronic advanced thinning of the supraspinatus with tendinopathy. Only a tiny amount of residual supraspinatus tendon distally due to combination of chronic thinning and partial tears. Tiny insertional tear distally. No tendon retraction. Calcific tendinitis. Calcific tendinitis involving the infraspinatus with interstitial tear extending to the myotendinous junction. Chronic thinning of the infraspinatus with tendinopathy. Normal teres minor. Subscapularis tendon appears intact. Biceps tendon is intact within the bicipital groove. Slight medial subluxation along the proximal bicipital groove. Intra-articular biceps tendon is intact. Degenerative fraying of the glenoid labrum which otherwise appears grossly normal. Normal bone marrow signal in the glenoid. Hypertrophic spurring about the humeral neck. Biceps labral anchor appears intact. MR/MR shoulder RT wo con* [id number] IMPRESSION: 1. Advanced arthritis AC joint with marked narrowing of the subacromial space and impingement on the rotator cuff. 2. Severe chronic thinning and degeneration of the distal supraspinatus with c alcific tendinitis and intrasubstance tears. No tendon retraction. Tiny inserti onal tear distally. 3. Chronic thinning of the infraspinatus with more acute appearing intrasubsta nce tear extending to the myotendinous junction with intrasubstance fluid. Calc ific tendinitis infraspinatus with chronic thinning distally. 4. Rotator cuff is otherwise intact. 5. Biceps tendon is intact within the bicipital groove. Slight medial subluxat ion of the proximal biceps tendon along the bicipital groove. 6. Intra-articular biceps tendon appears intact. 7. Advanced degenerative narrowing of the glenohumeral articulation.
== END 2025-06-02 14:25 | disposition home or self-care (01) ==
LOC: RAD 14:26
PROVIDERS: PCP Nurse Practitioner Family; Visit Provider Nurse Practitioner
DX: M19.011 Primary osteoarthritis, right shoulder (principal); M75.41 Impingement syndrome of right shoulder; M75.31 Calcific tendinitis of right shoulder; W18.2XXA Fall in (into) shower or empty bathtub, initial encounter
CPT/HCPCS: 73221

== ENCOUNTER → 2025-06-07 07:50 | Outpatient (BNVA) | payer OTHER, SELFPAY | PROVIDERS: PCP Nurse Practitioner Family; Visit Provider Internal Medicine | DX: E03.8 Other specified hypothyroidism (principal); R53.83 Other fatigue; R41.89 Other symptoms and signs involving cognitive functions and awareness; E07.9 Disorder of thyroid, unspecified | CPT/HCPCS: 99204 ==

== ENCOUNTER → 2025-06-13 14:06 | Outpatient (BNVA) | payer OTHER, SELFPAY | PROVIDERS: PCP Nurse Practitioner Family; Referring Provider Nurse Practitioner Family; Visit Provider Specialist | DX: G31.84 Mild cognitive impairment of uncertain or unknown etiology (principal); I49.8 Other specified cardiac arrhythmias | CPT/HCPCS: 96116; 99215 ==

== ENCOUNTER → 2025-06-15 09:26 | Outpatient (BNVA) | payer OTHER, SELFPAY | PROVIDERS: PCP Nurse Practitioner Family; Visit Provider Specialist | DX: M19.011 Primary osteoarthritis, right shoulder (principal); M75.41 Impingement syndrome of right shoulder | CPT/HCPCS: 20610; 73030; 99214; J1100; J2795; J3301; J9999 ==

== ENCOUNTER → 2025-07-04 13:04 | Outpatient (BNVA) | payer OTHER, SELFPAY | PROVIDERS: PCP Nurse Practitioner Family; Visit Provider Internal Medicine | DX: I48.91 Unspecified atrial fibrillation (principal); R41.3 Other amnesia; R55 Syncope and collapse; Z87.891 Personal history of nicotine dependence; Z86.73 Personal history of transient ischemic attack (TIA), and cerebral infarction without residual deficits | CPT/HCPCS: 99214 ==

== ENCOUNTER 2025-08-01 15:09 | Outpatient (CLI) | payer OTHER, SELFPAY ==
[2025-08-01 16:35] LABS: Free T4 Free Thyroxine 1.26 ng/dL (0.82-1.77); Thyroid Stimulating Hormone 2.74 uIU/mL (0.27-4.20)
== END 2025-08-01 15:10 | disposition home or self-care (01) ==
LOC: LAB 15:11
PROVIDERS: PCP Nurse Practitioner Family; Visit Provider Internal Medicine
DX: I48.91 Unspecified atrial fibrillation (principal); E03.8 Other specified hypothyroidism; Z79.82 Long term (current) use of aspirin; R00.1 Bradycardia, unspecified; G30.9 Alzheimer's disease, unspecified; F02.80 Dementia in other diseases classified elsewhere, unspecified severity, without behavioral disturbance, psychotic disturbance, mood disturbance, and anxiety; Z87.891 Personal history of nicotine dependence; R53.83 Other fatigue; R41.89 Other symptoms and signs involving cognitive functions and awareness; E07.9 Disorder of thyroid, unspecified
CPT/HCPCS: 36415; 83516; 84439; 84443; 86376; 86800; 99214

== ENCOUNTER → 2025-08-09 11:00 | Outpatient (BNVA) | payer OTHER, SELFPAY | PROVIDERS: PCP Nurse Practitioner Family; Visit Provider Internal Medicine | DX: E07.9 Disorder of thyroid, unspecified (principal); E03.8 Other specified hypothyroidism; R41.89 Other symptoms and signs involving cognitive functions and awareness; R53.83 Other fatigue | CPT/HCPCS: 99214 ==

== ENCOUNTER 2025-08-19 09:30 | Oncology outpatient (recurring) (ONCR) | payer OTHER, SELFPAY ==
[2025-08-02 09:14] VITALS: BP 164/85; PULSE 66; RESP 17; TEMP 36.9; O2SAT 95
[2025-08-02] MEDS: donanemab-azbt 350 MG in sodium chloride 0.9% 50 ML 140 MG IV (10:30)
[2025-08-02 11:40] VITALS: BP 182/78; PULSE 51; RESP 17; TEMP 35.7; O2SAT 98
--- NOTE | 2025-08-19 09:30 | MR_ITS ---
WS: [id number] MRI BRAIN WITHOUT CONTRAST HISTORY: [place] COMPARISON: 04/21/2025 TECHNIQUE: Diffusion imaging, multiplanar T1, T2 and FLAIR imaging obtained. No evidence for acute infarct or hemorrhage. [place]-white matter differentiation is normal. Moderate symmetric volume loss and small vessel changes. Additional small vessel disease bilaterally within the krystle is stable. No obvious progression of signal abnormalities within the brain. Ventricles and extra-axial spaces are prominent on the basis of atrophy. No inferior displacement of cerebellar tonsils. The sella turcica and pituitary gland are unremarkable. Dural venous sinuses and blackfeet of [place] demonstrate no abnormality on this unenhanced studies. Paranasal sinuses: Mucous retention cyst in the floor the LEFT maxillary sinus. No air-fluid levels within the sinuses. Mastoid air cells: Normal. Calvarium and scalp: Intact. MR/MR head wo con* [id number] IMPRESSION: 1. Normal diffusion imaging. No acute infarct or hemorrhage. 2. Moderate small vessel changes and cerebral and cerebellar atrophy similar t o the prior study. 3. No progression of T2 signal abnormalities or small vessel changes since 03/28.
== END 2025-08-26 23:59 | disposition home or self-care (01) ==
LOC: ONCMED 11:32 → RAD 08-20 → ONCMED 08-22 09:24
PROVIDERS: PCP Nurse Practitioner Family; Visit Provider Specialist
DX: G30.9 Alzheimer's disease, unspecified; F02.80 Dementia in other diseases classified elsewhere, unspecified severity, without behavioral disturbance, psychotic disturbance, mood disturbance, and anxiety; R93.0 Abnormal findings on diagnostic imaging of skull and head, not elsewhere classified; G31.89 Other specified degenerative diseases of nervous system; M27.40 Unspecified cyst of jaw; Z53.9 Procedure and treatment not carried out, unspecified reason
CPT/HCPCS: 70551; 96413; 99214; J0175; J7050; J9999

== ENCOUNTER 2025-09-12 09:30 | Oncology outpatient (recurring) (ONCR) | payer OTHER, SELFPAY ==
[2025-08-30] MEDS: donanemab-azbt 700 MG in sodium chloride 0.9% 50 ML 180 MG IV (10:07)
[2025-08-30 10:57] VITALS: BP 134/78; PULSE 52; RESP 17; TEMP 36.2; O2SAT 97
--- NOTE | 2025-09-12 09:15 | MR_ITS ---
WS: [id number] MRI BRAIN WITHOUT CONTRAST HISTORY: [place] COMPARISON: 08/19/2025, 04/21/2025 TECHNIQUE: Diffusion imaging, multiplanar T1, T2 and FLAIR imaging obtained. No evidence for acute infarct or hemorrhage. Suazo-white matter differentiation is normal. Moderate symmetric volume loss and small vessel changes. Mild small vessel disease bilaterally in the krystle. No obvious progression of the T2 or FLAIR signal hyperintensities within the white matter since prior examinations. No new infarct. No hemorrhage. Mild bilateral hippocampal atrophy is similar to the prior study. Ventricles and extra-axial spaces are prominent on the basis of central and peripheral atrophy. No inferior displacement of cerebellar tonsils. The sella turcica and pituitary gland are unremarkable. Dural venous sinuses and [place] demonstrate no abnormality on this unenhanced studies. Paranasal sinuses: Small mucous retention cyst in the floor LEFT maxillary sinus. No air-fluid levels. Mastoid air cells: Normal. Calvarium and scalp: Intact. MR/MR head wo con* [id number] IMPRESSION: 1. No acute infarct or hemorrhage. 2. Moderate small vessel changes in the cerebrum similar to the prior study. N o progression of small vessel disease or T2 hyperintensities. 3. Moderate cerebral and cerebellar atrophy. Stable. 4. Mild hippocampal atrophy.
== END 2025-09-25 23:59 | disposition home or self-care (01) ==
LOC: RAD 09-13 00:01 → ONCMED 09-13 09:30
PROVIDERS: PCP Nurse Practitioner Family; Visit Provider Specialist
DX: G30.9 Alzheimer's disease, unspecified; F02.80 Dementia in other diseases classified elsewhere, unspecified severity, without behavioral disturbance, psychotic disturbance, mood disturbance, and anxiety; R93.0 Abnormal findings on diagnostic imaging of skull and head, not elsewhere classified; G31.89 Other specified degenerative diseases of nervous system; M27.40 Unspecified cyst of jaw; Z53.9 Procedure and treatment not carried out, unspecified reason
CPT/HCPCS: 70551; 96413; 99214; J0175; J7050; J9999